=== PATIENT | female | born 2000 | race Caucasian/White ===

== ENCOUNTER 2018-07-03 13:30 | Emergency (ER) | payer OTHER ==
--- OUTSIDE RECORDS SUMMARY | 2018-07-03 13:37 | XMS REPORT | Continuity of Care Document ---
:2000 External Reference #:[id number] Author Name Arlin JIN Ricardo Address [address] [place] [address] Care Team Providers Name Role Phone Pino Nicholas M.D. Care Team Information Access Analyst Unavailable Pino Nicholas M.D. Primary Care Physician Unavailable Payers Date Identification Numbers Payment Provider Subscriber Effective: 2017 Policy Number: [id number] Medicaid-Adult Renetta Gale PayID: [id number] [address] [place] [address] Effective: 2016 [facility] [id number] Expires: 2017 Group Name: [facility] Income [id number] FPL [address] PayID: [id number] [place] [address] Advance Directives Description No Information Available Problems Date Description Provider Status Onset: 06/24/2017 Allergic rhinitis due to animals Malka Baldwin M.D. Active Onset: 09/11/2016 Peanut-induced anaphylaxis Antonio Saha M.D. Active Onset: 09/11/2016 Uncomplicated moderate persistent Antonio Saah M.D. Active asthma Onset: 09/11/2016 Body mass index 20-24 - normal Antonio Saha M.D. Active Onset: 04/15/2016 Ingestion dermatitis due to food Olivia Rich M.D. Active Onset: 04/15/2016 Uncomplicated moderate persistent Olivia Rich M.D. Active asthma Onset: 09/02/2012 Allergic rhinitis Tavo De Jesus M.D. Active Onset: 09/02/2012 Allergic rhinitis due to pollen Tavo De Jesus M.D. Active Onset: 09/02/2012 Extrinsic asthma without status Tavo De Jesus M.D. Active asthmaticus Family History Date Family Member(s) Observation Comments General Asthma General Food Allergy General Headache, Chronic General Migraine General Skin Disease/ rash General sinus disorders Mother Asthma Mother Food Allergy Shell fish, iodine Mother Headache, Chronic Mother Migraine Mother Skin Disease/ Rash Excema First Brother Asthma First Brother sinus disorders First Brother Skin Disease/ Rash Excema Second Brother Food Allergy dairy, shell fish Social History Type Date Description Comments Sex Unknown Marital Status N/A Lives With Mother And Father Lives With Brothers Home Environment 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 Home Environment Does not have an air conditioner Home Environment Stairs are present Home Environment Unfinished Basement Home Environment The basement is dry Home Environment Cotton Comforter Home Environment Mattress is 10 years old Home Environment Mattress is encased in an allergy proof case Home Environment Regular Mattress Home Environment Pillows are encased in an allergy proof case Home Environment Pillows are polyester Home Environment Uses a dehumidifier Home Environment There are draperies in the home Home Environment The home is tripp Home Environment The floors are wood Home Environment Anson Heat Home Environment [place] Home Environment Water Source: Well Smoke-Free Home is smoke-free Pets 1 dog Pets 1 cat Pets Negative For Animals sleep in bedroom Occupation Student ETOH Use Denies alcohol use Tobacco Use Start: Unknown Patient has never smoked Recreational Drug Use Denies Drug Use Allergies, Adverse Reactions, Alerts Date Description Reaction Status Severity Comments 04/27/2017 Eggs Anaphylaxis Active 04/27/2017 Influenza Vaccines Anaphylaxis Active Medications Medication Date Status Form Strength Qnty SIG Indications Ordering Provider Airduo 06/28/ Active Aerosol 232-14mcg/ 1unit use 1 puff J45.40 Arlin Respiclick 2019 Act s twice a day Uldrich, 232/14 PATIENT SUPPORT SPECIALIST-C Ventolin HFA 04/15/ Active Aerosol 108(90Base 8gm 2 puffs J30.1 Arlin 2015 ) mcg/Act inhalation Uldrich, every 4 PATIENT SUPPORT SPECIALIST-C hours Mometasone 04/15/ Active Suspension 50mcg/Act 17gm 2 sprays in J30.1 Olivia Rocío Furoate 2016 each bre Rich M.D. daily Montelukast 04/15/ Active Tablets 10mg 30tab take one J30.1 Arlin Sodium 2016 s tablet by Haleigh, mouth every PATIENT SUPPORT SPECIALIST-C evening at bedtime Advair Diskus 04/15/ Active Aerosol 250-50mcg/ 3unit inhale one J30.1 2015 Dose s puff by McNairn, mouth twice M.D. a day Epipen 2-Rich 04/15/ Active Solution 0.3mg/0.3M 2unit Use as J30.1 Arlin 2015 Auto-Inject L s Directed BLANCA RicardoP-Tammy Medications Administered in Office Medication Date Status Form Strength Qnty SIG Indications Ordering Provider Injection Administered Injection Allergy 018 Injection Injection Administered Injection Allergy 018 Injection Injection Administered Injection Allergy 018 Injection Injection Administered Injection Allergy 018 Injection Injection Administered Injection Allergy 018 Injection Injection Administered Injection Allergy 018 Injection Injection Administered Injection Allergy 018 Injection Injection Administered Injection Daniel Cohn M.D. Injection Administered Injection Allergy 018 Injection Injection Administered Injection Allergy 017 Injection Injection Administered Injection Allergy 017 Injection Injection Administered Injection Allergy 017 Injection Injection Administered Injection Allergy 016 Injection Injection Administered Injection Allergy 016 Injection Injection Administered Injection Allergy 016 Injection Injection Administered Injection Allergy 016 Injection Injection Administered Injection Allergy 016 Injection Injection Administered Injection Allergy 016 Injection Injection Administered Injection Allergy 016 Injection Injection Administered Injection Allergy 016 Injection Injection Administered Injection Allergy 016 Injection Injection Administered Injection Allergy 016 Injection Injection Administered Injection Allergy 016 Injection Injection Administered Injection Allergy 016 Injection Injection Administered Injection Allergy 016 Injection Injection Administered Injection Allergy 016 Injection Injection Administered Injection Allergy 016 Injection Injection Administered Injection Allergy 016 Injection Injection Administered Injection Allergy 016 Injection Injection Administered Injection Allergy 016 Injection Injection Administered Injection Allergy 016 Injection Injection Administered Injection Allergy 015 Injection Injection Administered Injection Allergy 015 Injection Injection Administered Injection Allergy 015 Injection Injection Administered Injection Allergy 015 Injection Injection Administered Injection Allergy 015 Injection Injection Administered Injection Allergy 015 Injection Injection Administered Injection Allergy 015 Injection Injection Administered Injection Allergy 015 Injection Injection Administered Injection Allergy 015 Injection Injection Administered Injection Allergy 015 Injection Injection Administered Injection Allergy 015 Injection Injection Administered Injection Allergy 015 Injection Injection Administered Injection Allergy 014 Injection Injection Administered Injection Allergy 014 Injection Injection Administered Injection Tavo 014 Neal M.D. Injection Administered Injection Allergy 014 Injection Injection Administered Injection Tavo 014 Neal M.D. Injection Administered Injection Allergy 014 Injection Injection Administered Injection Tavo 014 Neal M.D. Injection Administered Injection Allergy 014 Injection Injection Administered Injection Tavo 014 Neal M.D. Injection Administered Injection Allergy 014 Injection Injection Administered Injection Allergy 014 Injection Injection Administered Injection Tavo 014 Neal M.D. Injection Administered Injection Allergy 014 Injection Injection Administered Injection Tavo 014 Neal M.D. Injection Administered Injection Allergy 014 Injection Injection Administered Injection Tavo 014 Neal M.D. Injection Administered Injection Allergy 014 Injection Injection Administered Injection Allergy 014 Injection Injection Administered Injection Tavo 014 Neal M.D. Injection Administered Injection Allergy 014 Injection Injection Administered Injection Tavo 014 Neal M.D. Injection Administered Injection Allergy 014 Injection Injection Administered Injection Tavo 014 Rocío De Jesus.D. Injection Administered Injection Allergy 014 Injection Injection Administered Injection Tavo 014 Neal M.D. Injection Administered Injection Allergy 014 Injection Injection Administered Injection Allergy 014 Injection Injection Administered Injection Allergy 014 Injection Injection Administered Injection Tavo 014 Cirilo De JesusD. Injection Administered Injection Allergy 014 Injection Injection Administered Injection Tavo 013 Rocío De Jesus.D. Injection Administered Injection Allergy 013 Injection Injection Administered Injection Tavo 013 Cirilo De JesusD. Injection Administered Injection Allergy 013 Injection Injection Administered Injection Tavo 013 Rocío De Jesus.D. Injection Administered Injection Allergy 013 Injection Injection Administered Injection Tavo Shona De Jesus M.D. Injection Administered Injection Allergy 013 Injection Injection Administered Injection Tavo Rocío Estrella.D. Injection Administered Injection Allergy 013 Injection Injection Administered Injection Tavo 013 Bianka De Jesus Injection Administered Injection Allergy 013 Injection Injection Administered Injection Allergy 013 Injection Injection Administered Injection Tavo 013 Cirilo De JesusDKristi Injection Administered Injection Allergy 013 Injection Injection Administered Injection Tavo Rocío Estrella.D. Injection Administered Injection Allergy 013 Injection Injection Administered Injection Tavo 013 Cirilo De JesusDKristi Injection Administered Injection Allergy 013 Injection Injection Administered Injection Tavo 013 Rocío De Jesus.D. Injection Administered Injection Allergy 013 Injection Injection Administered Injection Allergy 013 Injection Injection Administered Injection Tavo 013 Rocío De Jesus.D. Injection Administered Injection Allergy 013 Injection Injection Administered Injection Allergy 013 Injection Injection Administered Injection Tavo 013 Rocío De Jesus.D. Injection Administered Injection Allergy 013 Injection Injection Administered Injection Tavo 013 Neal, M.D. Injection Administered Injection Allergy 013 Injection Injection Administered Injection Tavo 013 Neal, M.D. Injection Administered Injection Unknown 013 Injection Administered Injection Tavo 013 Neal, M.D. Injection Administered Injection Tavo 013 Neal, M.D. Injection Administered Injection Tavo 013 Neal, M.D. Injection Administered Injection Tavo 012 Neal, M.D. Injection Administered Injection Tavo 012 Neal, M.D. Injection Administered Injection Tavo 012 Neal, M.D. Injection Administered Injection Tavo 012 Neal, M.D. Injection Administered Injection Tavo 012 Neal, M.D. Injection Administered Injection Tavo 012 Neal, M.D. Injection Administered Injection Tavo 012 Neal, M.D. Injection Administered Injection Tavo 012 Neal, M.D. Injection Administered Injection Tavo 012 Neal, M.D. Injection Administered Injection Tavo 012 Neal, M.D. Injection Administered Injection Tavo 012 Neal, M.D. Injection Administered Injection Tavo 012 Neal, M.D. Injection Administered Injection Tavo 012 Neal, M.D. Injection Administered Injection Tavo 012 Neal, M.D. Injection Administered Injection Tavo 012 Neal, M.D. Injection Administered Injection Tavo 012 Neal, M.D. Injection Administered Injection Tavo 012 Neal, M.D. Injection Administered Injection Tavo 012 Neal, M.D. Injection Administered Injection Tavo 012 Neal, M.D. Injection Administered Injection Tavo 012 Neal, M.D. Injection Administered Injection Tavo 012 Neal, M.D. Injection Administered Injection Tavo 012 Neal, M.D. Injection Administered Injection Tavo 012 Neal, M.D. Injection Administered Injection Tavo 012 Neal, M.D. Injection Administered Injection Tavo 012 Neal, M.D. Injection Administered Injection Tavo 012 Neal, M.D. Injection Administered Injection Tavo 011 Neal, M.D. Injection Administered Injection Tavo 011 Neal, M.D. Injection Administered Injection Tavo 011 Neal, M.D. Injection Administered Injection Tavo 011 Neal, M.D. Injection Administered Injection Tavo 011 Neal, M.D. Injection Administered Injection Tavo 011 Neal, M.D. Injection Administered Injection Tavo 011 Neal, M.D. Injection Administered Injection Tavo 011 Neal, M.D. Injection Administered Injection Tavo 011 Neal, M.D. Injection Administered Injection Tavo 011 Neal, M.D. Injection Administered Injection Tavo 011 Neal, M.D. Injection Administered Injection Tavo 011 Neal, M.D. Injection Administered Injection Tavo 011 Neal, M.D. Injection Administered Injection Tavo 011 Neal, M.D. Injection Administered Injection Tavo 011 Neal, M.D. Injection Administered Injection Tavo 011 Neal, M.D. Injection Administered Injection Tavo 011 Neal, M.D. Injection Administered Injection Tavo 011 Neal, M.D. Injection Administered Injection Tavo 011 Neal, M.D. Injection Administered Injection Tavo 010 Neal, M.D. Injection Administered Injection Tavo 010 Neal, M.D. Injection Administered Injection Tavo 010 Neal, M.D. Injection Administered Injection Tavo 010 Neal, M.D. Injection Administered Injection Olivia M 010 Hilario, M.D. Injection Administered Injection Tavo 010 Neal, M.D. Injection Administered Injection Tavo 010 Neal, M.D. Injection Administered Injection Olivia M 010 Hilario, M.D. Injection Administered Injection Tavo 010 Neal, M.D. Injection Administered Injection Tavo 010 Neal, M.D. Injection Administered Injection Tavo 010 Neal, M.D. Injection Administered Injection Tavo 010 Neal, M.D. Injection Administered Injection Tavo 010 Neal, M.D. Injection Administered Injection Tavo 010 Neal, M.D. Injection Administered Injection Tavo 010 Neal, M.D. Injection Administered Injection Tavo 010 Neal, M.D. Injection Administered Injection Tavo 010 Neal, M.D. Injection Administered Injection Tavo 010 Neal, M.D. Injection Administered Injection Tavo 010 Neal, M.D. Injection Administered Injection Tavo 010 Neal, M.D. Injection Administered Injection Loivia M 010 Hilario, M.D. Injection Administered Injection Olivia M 010 Hilario, M.D. Injection Administered Injection Tavo 009 Neal, M.D. Injection Administered Injection Tavo 009 Neal, M.D. Injection Administered Injection Tavo 009 Neal, M.D. Injection Administered Injection Tavo 009 Neal, M.D. Injection Administered Injection Tavo 009 Neal, M.D. Injection Administered Injection Tavo 009 Neal, M.D. Injection Administered Injection Tavo 009 Neal, M.D. Injection Administered Injection Tavo 009 Neal, M.D. Injection Administered Injection Tavo 009 Neal, M.D. Injection Administered Injection Tavo 009 Neal, M.D. Injection Administered Injection Tavo 009 Neal, M.D. Injection Administered Injection Hudson 009 Leonardostowski, M.D. Injection Administered Injection Tavo 009 Neal, M.D. Injection Administered Injection Tavo 009 Neal, M.D. Injection Administered Injection Tavo 009 Neal, M.D. Injection Administered Injection Tavo 009 Neal, M.D. Injection Administered Injection Tavo 009 Neal, M.D. Injection Administered Injection Tavo 009 Neal, M.D. Injection Administered Injection Tavo 009 Neal, M.D. Injection Administered Injection Tavo 009 Neal, M.D. Injection Administered Injection Tavo 009 Neal, M.D. Injection Administered Injection Tavo 009 Neal, M.D. Injection Administered Injection Atvo 009 Neal, M.D. Injection Administered Injection Tavo 009 Neal, M.D. Injection Administered Injection Tavo 009 Neal, M.D. Injection Administered Injection Tavo 009 Neal, M.D. Injection Administered Injection Tavo 009 Neal, M.D. Injection Administered Injection Tavo 009 Neal, M.D. Injection Administered Injection Tavo 009 Neal, M.D. Injection Administered Injection Tavo 009 Neal, M.D. Injection Administered Injection Tavo 009 Neal, M.D. Injection Administered Injection Tavo 009 Neal, M.D. Injection Administered Injection Tavo 009 Neal, M.D. Injection Administered Injection Tavo 009 Neal, M.D. Injection Administered Injection Tavo 009 Neal, M.D. Injection Administered Injection Hudson 009 Cristi, M.D. Injection Administered Injection Tavo 009 Neal, M.D. Injection Administered Injection Tavo 009 Neal, M.D. Injection Administered Injection Tavo 009 Neal, M.D. Injection Administered Injection Tavo 008 Neal, M.D. Injection Administered Injection Tavo 008 Neal, M.D. Injection Administered Injection Tavo 008 Neal, M.D. Injection Administered Injection Tavo 008 Neal, M.D. Injection Administered Injection Tavo 008 Neal, M.D. Injection Administered Injection Tavo 008 Neal, M.D. Injection Administered Injection Tavo 008 Neal, M.D. Injection Administered Injection Tavo 008 Neal, M.D. Injection Administered Injection Hudson 008 Leonardostowski, M.D. Injection Administered Injection Tavo 008 Neal, M.D. Injection Administered Injection Tavo 008 Neal, M.D. Injection Administered Injection Tavo 008 Neal, M.D. Injection Administered Injection Tavo 008 Neal, M.D. Injection Administered Injection Tavo 008 Enal, M.D. Injection Administered Injection Tavo 008 Neal, M.D. Injection Administered Injection Tavo 008 Neal, M.D. Injection Administered Injection Tavo 008 Neal, M.D. Injection Administered Injection Tavo 008 Neal, M.D. Injection Administered Injection Tavo 008 Neal, M.D. Injection Administered Injection Tavo De Jesus M.D. Injection Administered Injection Gerardo Nayak M.D. Injection Administered Injection Gerardo Nayak M.D. Injection Administered Injection Gerardo Nayak M.D. Immunizations Description No Information Available Vital Signs Date Vital Result Comment 06/28/2018 9:35am Height 64 inches 5'4" Weight 146.00 lb Weight 66.226 kg Respiratory Rate 18 /min Heart Rate 70 /min O2 % BldC Oximetry 98 % BP Systolic 98 mmHg BP Diastolic 58 mmHg Asthma Control Test 24 BMI (Body Mass Index) 25.1 kg/m2 Body Mass Index Percentile 79 % Height Percentile 45 % Weight Percentile 77th 06/24/2017 8:40am Height 64 inches 5'4" Weight 134.00 lb Weight 60.782 kg Respiratory Rate 20 /min Heart Rate 63 /min O2 % BldC Oximetry 100 % BP Systolic 111 mmHg BP Diastolic 56 mmHg Asthma Control Test 22 BMI (Body Mass Index) 23.0 kg/m2 Body Mass Index Percentile 67 % Height Percentile 46 % Weight Percentile 65th 04/27/2017 3:06pm Height 64 inches 5'4" Weight 128.00 lb Weight 58.061 kg Respiratory Rate 18 /min Heart Rate 72 /min O2 % BldC Oximetry 99 % BP Systolic 107 mmHg BP Diastolic 72 mmHg Asthma Control Test 21 BMI (Body Mass Index) 22.0 kg/m2 Body Mass Index Percentile 57 % Height Percentile 46 % Weight Percentile 56th 09/11/2016 10:58am Height 64 inches 5'4" Weight 126.00 lb Weight 57.154 kg Respiratory Rate 16 /min Heart Rate 67 /min O2 % BldC Oximetry 97 % BP Systolic 109 mmHg BP Diastolic 67 mmHg Asthma Control Test 25 BMI (Body Mass Index) 21.6 kg/m2 Body Mass Index Percentile 55 % Height Percentile 47 % Weight Percentile 55th 04/15/2016 4:53pm Height 64 inches 5'4" Weight 133.00 lb Weight 60.329 kg Respiratory Rate 20 /min Heart Rate 72 /min O2 % BldC Oximetry 99 % BP Systolic 109 mmHg BP Diastolic 59 mmHg Asthma Control Test 24 BMI (Body Mass Index) 22.8 kg/m2 Body Mass Index Percentile 69 % Height Percentile 47 % Weight Percentile 68th 09/02/2012 2:04pm Height 62.75 inches 5'2.75" Weight 111.50 lb Weight 50.576 kg Heart Rate 68 /min O2 % BldC Oximetry 97 % BP Systolic 104 mmHg BP Diastolic 66 mmHg BMI (Body Mass Index) 19.9 kg/m2 Body Mass Index Percentile 59 % Height Percentile 47 % Weight Percentile 57th Results Test Date Facility Test Result H/L Range Note Laboratory test 04/18/2016 [facility] Rast Peanut 12.3 kU/L N [address] [address] [phone] Rast Almonds 0.97 kU/L N 2 Rast [place] Nuts 0.92 kU/L N 3 Rast Cashews 2.71 kU/L N 4 Rast Hazelnut 1.12 kU/L N 5 Rast Pecan Nut Ige 1.92 kU/L N 6 Rast Pistachio Ige 3.60 kU/L N 7 Rast Macadamia 04/18/2016 [facility] Macadamia Nut 0.47 kU/L Abnormal <0.35 Nut RF345 [address] [place] [address] [phone] Macadamia Nut IgE Flag Class 1 N 8 Laboratory test finding 04/18/2016 [facility] Rast Walnuts 6.59 kU/L N 9 [address] [place] [address] [phone] Rast Egg White 2.33 kU/L N 10 Peanut Component 04/18/2016 [facility] Peanut Component 8.56 kU/ L N 11 Panel [address] Caitlin h 1 [place] [address] [phone] Peanut Component Caitlin h 2 4.01 kU/L N 12 Peanut Component Caitlin h 3 0.61 kU/L N 13 Peanut Component Caitlin h 8 <0.10 kU/L N 14 Peanut Component Caitlin h 9 <0.10 kU/L N 15 Peanut Component Interp See Comment N 16 Laboratory test 04/18/2016 [facility] Reference Lab See Comment N 17 finding [address] [place] [address] [phone] 1 Class 3 (Positive 3.50-17.4) Test Performed by: [address] [place] [address] [employer]: Morteza Guevara II, M.D., Ph.D. 2 Class 2 (Positive 0.70-3.49) Test Performed by: [place] [address] [employer]: Morteza Guevara II, M.D., Ph.D. 3 Class 2 (Positive 0.70-3.49) Test Performed by: [place] [address] [employer] S[employer]: Morteza Guevara II, M.D., Ph.D. 4 Class 2 (Positive 0.70-3.49) Test Performed by: [place] [address] [employer]: Morteza Guevara II, M.D., Ph.D. 5 Class 2 (Positive 0.70-3.49) Test Performed by: [place] [address] [employer]: Morteza Guevara II, M.D., Ph.D. 6 Class 2 (Positive 0.70-3.49) Test Performed by: [place] [address] [employer]: Morteza Guevara II, M.D., Ph.D. 7 Class 3 (Positive 3.50-17.4) Test Performed by: [place] [address] [employer]: Morteza Guevara II, M.D., Ph.D. 8 The test method is the ProxToMe ImmunoCAP allergen-specific IgE system. CLASS INTERPRETATION <0.10 kU/L=0, Negative; 0.10 - 0.34 kU/L=0/1, Equivocal/Borderline; 0.35 - 0.69 kU/L=1, Low Positive; 0.70 - 3.49 kU/L=2, Moderate Positive; 3.50 - 17.49 kU/L=3, High Positive; 17.50 - 49.99 kU/L=4, Very High Positive; 50.00 - 99.99 kU/L=5, Very High Positive; >99.99 kU/L=6, Very High Positive *This test was developed and its performance characteristics determined by [facility]. It has not been cleared or approved by the U.S. Food and Drug Administration. Test Performed by: [facility], Interface [address] [place] [address] 9 Class 3 (Positive 3.50-17.4) Test Performed by: [place] [address] [employer]: Morteza Guevara II, M.D., Ph.D. 10 Class 2 (Positive 0.70-3.49) Test Performed by: [place] [address] [employer]: Morteza Guevara II, M.D., Ph.D. 11 Class 3 (Positive 3.50-17.4) 12 Class 3 (Positive 3.50-17.4) 13 Class 1 (Equivocal 0.35-0.69) 14 Class 0 (Negative <0.10) 15 Class 0 (Negative <0.10) 16 Positive for Caitlin h 1, Caitlin h 2 and Caitlin h 3 IgE antibodies in context of positive total peanut IgE. Sensitization to Caitlin h 1, Caitlin h 2 and Caitlin h 3 may indicate an increased risk of systemic allergic response upon exposure to peanut. Results from peanut-specific IgE testing must be interpreted in the context of patient's clinical evaluation and history of allergen reactivity. Test Performed by: [address] [address] [employer]: Morteza Guevara II, M.D., Ph.D. 17 Test Result Flag Unit RefValue Ovomucoid, IgE 2.51 kU/L Class 2 (Positive 0.70-3.49) Test Performed by: [address] [address] [employer]: Morteza Guevara II, M.D., Ph.D. Procedures Date Code Description Status 12/11/2017 71576 Injection Completed 11/20/2017 01479 Injection Completed 2017 94293 Injection Completed 10/29/2017 27753 Injection Completed 10/08/2017 68652 Injection Completed 09/30/2017 34122 Injection Completed 06/24/2017 07247 Pre PFT Completed 05/01/2017 37498 Injection Completed 04/29/2017 18774 Injection Completed 04/29/2017 96760 Injection Completed 04/28/2017 34283 Extract 1-10 Completed 04/27/2017 15338 Pre PFT Completed 09/11/2016 70096 Pre PFT Completed 07/08/2016 94674 Injection Completed 06/10/2016 85508 Injection Completed 05/13/2016 08242 Injection Completed 04/15/2016 12893 Pre PFT Completed 04/15/2016 45955 Injection Completed 03/25/2016 05855 Injection Completed 02/26/2016 21689 Injection Completed 01/29/2016 21370 Injection Completed 01/08/2016 34060 Injection Completed 12/25/2015 83472 Injection Completed 12/11/2015 92075 Extract 1-10 Completed 12/11/2015 57584 Injection Completed 11/27/2015 46796 Injection Completed 11/13/2015 73114 Injection Completed 10/30/2015 45597 Injection Completed 10/16/2015 99546 Injection Completed 10/02/2015 62068 Injection Completed 09/11/2015 43629 Injection Completed 08/28/2015 18798 Injection Completed 08/21/2015 44914 Injection Completed 07/31/2015 11764 Injection Completed 06/26/2015 76091 Extract 1-10 Completed 06/26/2015 73851 Injection Completed 05/22/2015 74402 Injection Completed 04/24/2015 03989 Injection Completed 03/27/2015 09539 Injection Completed 03/06/2015 49842 Injection Completed 02/20/2015 19844 Injection Completed 12/26/2014 95490 Injection Completed 11/21/2014 37283 Injection Completed 10/24/2014 44470 Injection Completed 09/19/2014 17198 Injection Completed 08/29/2014 91710 Extract 1-10 Completed 08/29/2014 65553 Injection Completed 07/25/2014 75043 Injection Completed 06/27/2014 83132 Injection Completed 05/30/2014 79857 Injection Completed 04/25/2014 03141 Injection Completed 03/21/2014 39984 Injection Completed 02/21/2014 58385 Injection Completed 02/07/2014 31095 Injection Completed 02/07/2014 30920 Injection Completed 01/24/2014 33486 Injection Completed 01/24/2014 25948 Injection Completed 01/10/2014 36864 Injection Completed 01/10/2014 42057 Injection Completed 12/27/2013 70180 Injection Completed 12/27/2013 66841 Injection Completed 12/06/2013 73742 Injection Completed 11/22/2013 87634 Injection Completed 11/22/2013 34995 Injection Completed 11/08/2013 53352 Injection Completed 11/08/2013 71398 Injection Completed 10/25/2013 16781 Injection Completed 10/25/2013 60097 Injection Completed 10/04/2013 24874 Injection Completed 09/13/2013 86542 Injection Completed 09/13/2013 92080 Injection Completed 08/16/2013 33582 Injection Completed 08/16/2013 08172 Injection Completed 08/02/2013 80840 Injection Completed 08/02/2013 25652 Injection Completed 07/19/2013 64220 Injection Completed 07/19/2013 24388 Injection Completed 06/21/2013 32817 Extract 1-10 Completed 06/21/2013 37347 Injection Completed 05/24/2013 90106 Injection Completed 04/26/2013 13629 Injection Completed 04/26/2013 43649 Injection Completed 04/12/2013 43620 Injection Completed 04/12/2013 35907 Injection Completed 03/22/2013 37094 Injection Completed 03/22/2013 15851 Injection Completed 03/08/2013 91825 Injection Completed 03/08/2013 91095 Injection Completed 02/22/2013 52677 Injection Completed 02/22/2013 76960 Injection Completed 02/01/2013 49732 Injection Completed 02/01/2013 92633 Injection Completed 01/18/2013 07110 Injection Completed 01/18/2013 22996 Injection Completed 12/28/2012 71815 Injection Completed 12/07/2012 29323 Injection Completed 12/07/2012 54419 Injection Completed 12/07/2012 02403 Extract 1-10 Completed 11/23/2012 33450 Injection Completed 11/23/2012 42941 Injection Completed 2012 09018 Injection Completed 2012 66468 Injection Completed 10/26/2012 18102 Injection Completed 10/26/2012 33978 Injection Completed 10/05/2012 43613 Injection Completed 09/21/2012 56934 Injection Completed 09/21/2012 91924 Injection Completed 08/24/2012 13544 Injection Completed 08/03/2012 71723 Injection Completed 08/03/2012 44180 Injection Completed 07/20/2012 54353 Injection Completed 07/20/2012 67546 Injection Completed 07/06/2012 87610 Injection Completed 07/06/2012 10282 Injection Completed 06/22/2012 16385 Extract 1-10 Completed 06/22/2012 39850 Injection Completed 05/25/2012 75719 Injection Completed 04/27/2012 46631 Injection Completed 04/06/2012 33604 Injection Completed 03/23/2012 07010 Injection Completed 03/09/2012 43158 Injection Completed 02/24/2012 65395 Injection Completed 02/17/2012 36317 Injection Completed 02/03/2012 43632 Injection Completed 01/20/2012 82577 Injection Completed 01/06/2012 48145 Extract 1-10 Completed 01/06/2012 83493 Injection Completed 12/23/2011 47816 Injection Completed 12/09/2011 74963 Injection Completed 11/25/2011 58654 Injection Completed 11/11/2011 82947 Injection Completed 10/30/2011 85705 Injection Completed 10/14/2011 11177 Injection Completed 10/02/2011 64779 Injection Completed 09/16/2011 98837 Injection Completed 09/02/2011 39292 Injection Completed 08/28/2011 32787 Extract 1-10 Completed 08/19/2011 66039 Injection Completed 08/05/2011 22327 Injection Completed 07/22/2011 80321 Injection Completed 07/08/2011 52925 Injection Completed 06/24/2011 04871 Injection Completed 06/10/2011 37109 Injection Completed 05/27/2011 47458 Injection Completed 05/06/2011 92981 Injection Completed 04/22/2011 53989 Injection Completed 03/18/2011 35819 Injection Completed 03/11/2011 64414 Extract 1-10 Completed 02/18/2011 78665 Injection Completed 02/04/2011 79398 Injection Completed 01/14/2011 53371 Injection Completed 01/02/2011 23006 Injection Completed 12/10/2010 75607 Injection Completed 12/10/2010 94448 Pulmonary Function Test Completed 11/26/2010 90040 Injection Completed 11/12/2010 67571 Injection Completed 10/29/2010 18539 Injection Completed 10/15/2010 57967 Injection Completed 10/01/2010 24445 Injection Completed 09/26/2010 59297 Extract 1-10 Completed 09/17/2010 71915 Injection Completed 09/03/2010 67855 Injection Completed 08/20/2010 80561 Injection Completed 08/06/2010 66983 Injection Completed 07/23/2010 20749 Injection Completed 07/09/2010 93671 Injection Completed 06/11/2010 72495 Injection Completed 05/14/2010 85349 Injection Completed 04/02/2010 78190 Injection Completed 03/05/2010 77083 Injection Completed 02/28/2010 18740 Extract 1-10 Completed 02/05/2010 17677 Injection Completed 01/22/2010 57446 Injection Completed 01/08/2010 22809 Injection Completed 12/25/2009 03083 Injection Completed 12/11/2009 49897 Injection Completed 11/27/2009 25168 Injection Completed 11/13/2009 68758 Injection Completed 10/23/2009 53059 Injection Completed 10/09/2009 57678 Injection Completed 09/18/2009 72160 Injection Completed 09/13/2009 78372 Extract 1-10 Completed 09/04/2009 46129 Injection Completed 08/21/2009 47082 Injection Completed 08/07/2009 68880 Injection Completed 07/24/2009 16255 Injection Completed 07/10/2009 06771 Injection Completed 06/26/2009 49137 Injection Completed 06/12/2009 22335 Injection Completed 05/29/2009 97399 Injection Completed 05/15/2009 17223 Injection Completed 05/01/2009 68852 Injection Completed 04/19/2009 29940 Extract 1-10 Completed 04/17/2009 54858 Injection Completed 04/03/2009 95735 Injection Completed 03/22/2009 85725 Injection Completed 03/06/2009 93663 Injection Completed 02/20/2009 00743 Injection Completed 02/06/2009 40667 Injection Completed 01/23/2009 48054 Injection Completed 01/09/2009 15316 Injection Completed 12/26/2008 20344 Injection Completed 12/12/2008 33276 Injection Completed 12/07/2008 73033 Extract 1-10 Completed 11/28/2008 77450 Injection Completed 11/14/2008 28253 Injection Completed 11/07/2008 28966 Injection Completed 10/31/2008 89471 Injection Completed 10/26/2008 49896 Injection Completed 10/17/2008 40116 Injection Completed 10/10/2008 74054 Injection Completed 10/03/2008 24768 Injection Completed 09/26/2008 29679 Injection Completed 09/19/2008 70941 Injection Completed 09/14/2008 04443 Extract 1-10 Completed 09/12/2008 48005 Injection Completed 09/05/2008 01486 Injection Completed 08/29/2008 62552 Injection Completed 08/22/2008 12151 Injection Completed 08/15/2008 95864 Injection Completed 08/08/2008 35661 Injection Completed 08/01/2008 20280 Injection Completed 07/25/2008 13689 Injection Completed 07/18/2008 68739 Injection Completed 07/11/2008 71517 Injection Completed 06/29/2008 37097 Extract 1-10 Completed 06/27/2008 44102 Injection Completed 06/20/2008 98535 Injection Completed 06/13/2008 71849 Injection Completed 06/06/2008 99055 Injection Completed 05/30/2008 84952 Injection Completed 05/23/2008 60855 Injection Completed 05/16/2008 77686 Injection Completed 05/02/2008 01763 Injection Completed 04/25/2008 20022 Injection Completed 04/12/2008 81634 Extract 1-10 Completed 04/11/2008 58273 Injection Completed 04/04/2008 75593 Injection Completed 03/28/2008 91342 Injection Completed 03/21/2008 87409 Injection Completed 03/14/2008 63946 Injection Completed 03/07/2008 79242 Injection Completed 02/29/2008 26644 Injection Completed 02/22/2008 71188 Injection Completed 02/15/2008 61762 Injection Completed 02/08/2008 76804 Injection Completed 02/01/2008 68760 Injection Completed 01/25/2008 37663 Injection Completed 01/18/2008 84366 Injection Completed 01/11/2008 75189 Injection Completed 01/04/2008 69536 Injection Completed 12/28/2007 27500 Injection Completed 12/21/2007 10827 Injection Completed 12/14/2007 32014 Injection Completed 12/07/2007 58359 Injection Completed 11/30/2007 45830 Injection Completed 11/24/2007 00635 Extract 1-10 Completed 02/26/2004 60064 Injection Completed 02/12/2004 46180 Injection Completed 02/05/2004 87587 Injection Completed 01/26/2004 56557 Extract 1-10 Completed Encounters Type Date Location Provider Dx Diagnosis Office Visit 06/28/2018 Yazmin Ricardo, J45.40 Moderate persistent 9:20a PATIENT SUPPORT SPECIALIST-C asthma, uncomplicated J30.89 Other allergic rhinitis J30.81 Allergic rhinitis due to animal (cat) (dog) hair and dander J30.2 Other seasonal allergic rhinitis J30.1 Allergic rhinitis due to pollen Office Visit 06/24/2017 8:40a [place] Malka Baldwin, J45.40 Moderate persistent M.D. asthma, uncomplicated J30.89 Other allergic rhinitis J30.81 Allergic rhinitis due to animal (cat) (dog) hair and dander J30.2 Other seasonal allergic rhinitis Office Visit 04/27/2017 3:00p [place] Arlin Ulsheron, J45.40 Moderate persistent PATIENT SUPPORT SPECIALIST-C asthma, uncomplicated T78.01xA Anaphylactic reaction due to peanuts, initial encounter J30.1 Allergic rhinitis due to pollen J30.89 Other allergic rhinitis J30.2 Other seasonal allergic rhinitis Office Visit 09/11/2016 11:00a [place] [facility] Antonio Saha J30.1 Allergic rhinitis M.D. due to pollen J45.40 Moderate persistent asthma, uncomplicated T78.01xA Anaphylactic reaction due to peanuts, initial encounter Z68.21 Body mass index (BMI) 21.0-21.9, adult Office Visit 04/15/2016 5:00p [place] [facility] Olivia Alford J30.89 Other allergic Bianka Rich rhinitis J30.1 Allergic rhinitis due to pollen J45.40 Moderate persistent asthma, uncomplicated L27.2 Dermatitis due to ingested food Office Visit 09/02/2012 2:00p [place] Tavo 493.00 Asthma Extrinsic Office Bianka De Jesus Unspecified 477.0 Rhinitis Allergic Due To Pollen 477.8 Rhinitis Allergic Due To Other Allergen Office Visit 01/08/2010 4:40p [place] [facility] Olivia Alford 693.1 Dermatitis Due To Bianka Rich Food 477.0 Rhinitis Allergic Due To Pollen 493.90 Asthma Unspec W/O Status Asthmaticus 692.9 Dermatitis Unspec Cause Due To Spec Agents Other 477.8 Rhinitis Allergic Due To Other Allergen Office Visit 11/27/2009 11:40a [place] [facility] Olivia Alford 693.1 Dermatitis Due To Bianka Rich Food 477.0 Rhinitis Allergic Due To Pollen 493.90 Asthma Unspec W/O Status Asthmaticus 692.9 Dermatitis Unspec Cause Due To Spec Agents Other 477.8 Rhinitis Allergic Due To Other Allergen Office Visit 11/14/2008 11:30a [place] [facility] [place] 693.1 Dermatitis Due Bianka Colin To Food 477.0 Rhinitis Allergic Due To Pollen 493.90 Asthma Unspec W/O Status Asthmaticus 692.9 Dermatitis Unspec Cause Due To Spec Agents Other 477.8 Rhinitis Allergic Due To Other Allergen Office Visit 01/22/2004 5:15p [place] Mireya Menjivar 693.1 Dermatitis Due To Food 493.90 Asthma Unspec W/O Status Asthmaticus Office Visit 07/25/2003 4:45p [place] [facility] Gerardo Ellison 693.1 Dermatitis Due Bianka Nayak To Food 493.90 Asthma Unspec W/O Status Asthmaticus Plan of Treatment Future Appointment(s):07/02/2018 1:30 pm - Allergy Testing at [id number]/02/2018 9:20 am - [id number]/28/2018 - DILSHAD Braxton- CJ45.40 Moderate persistent asthma, fjjmsrcarxysjV69.89 Other allergic wdyqqzhqE91.81 Allergic rhinitis due to animal (cat) (dog) hair and tszgruN85.2 Other seasonal allergic fvwrkiwkL85.1 Allergic rhinitis due to pollenNew Medication:Airduo Respiclick 232/14 232-14 mcg/ActFollow up:Thursday for pre PFT and ENORecommendations:Continue all medications as prescribed.Refrain from wearing perfumes/scented colognes while visitingour office. Your PFT shows moderate obstruction so Start the Airduo 1 puff twice a day Stop the Breo Continue the Ventolin 2 puffs every 4 hours as needed for cough, shortness of breath, chest tightness or wheezing. Continue the montelukast 1 daily Monitor Albuterol use. If using more than 2x/week,please call the office as your asthma medications may need to be adjusted. Followup on Thursday before going back to [facility]
[2018-07-03 13:53] VITALS: BP 120/79
--- NOTE | 2018-07-03 14:47 | UC ---
Respiratory Complaint HPI - HPI Summary HPI Summary: 17 y/o female presents to the urgent care c/o chest tightness for the past week. Pt has Hx of Asthma. She was seen by her Child Psychologist twice this week for a a pulmonary function test. They also did a chest x-ray which was also negative. Pt reports her asthma is triggered by the cold. She has mild nasal congestion w/ clear nasal discharge. She has been using her inhaler, but symptoms have not improve. She is afraid she is going to get an asthma attack while in School. She called Child Psychologist office this morning, but they are close today. Pt denies fever, SOB, chest pain, abdominal pain, WARREN, N/V/D. - History of Current Complaint Chief Complaint: UCRespiratory Stated Complaint: CHEST CONGESTION Time Seen by Provider: 07/03/18 14:46 Hx Obtained From: Patient Hx Last Menstrual Period: 06/20/18 ?: No Onset/Duration: Gradual Onset, Lasting Weeks - 1 week, Still Present, Worse Since - yesterday Timing: Intermittent Episodes Severity Initially: Mild Severity Currently: Mild Pain Intensity: 0 Pain Scale Used: 0-10 Numeric Character: Cough: Nonproductive - dry Aggravating Factors: Recumbent Position Alleviating Factors: Bronchodilator Associated Signs And Symptoms: Positive: Wheezing - mild, URI, Nasal Congestion - Risk Factors Pulmonary Embolism Risk Factors: Negative Cardiac Risk Factors: Negative Pseudomonas Risk Factors: Negative Tuberculosis Risk Factors: Negative - Allergies/Home Medications Allergies/Adverse Reactions: Allergies Allergy/AdvReac Type Severity Reaction Status Date / Time egg Allergy Anaphylatic Verified 07/03/18 13:54 Shock PEANUTS Allergy Severe Anaphylatic Uncoded 05/16/13 10:03 Shock Home Medications: Home Medications Fluticasone/Salmeterol [Airduo Respiclick 55-14 Mcg] 1 puff INH BID 07/03/18 [ History Confirmed 07/03/18] PMH/Surg Hx/FS Hx/Imm Hx Previously Healthy: Yes Respiratory History: Asthma - Surgical History Surgical History: None - Family History Known Family History: Positive: Cardiac Disease, Hypertension, Respiratory Disease - asthma - Social History Occupation: Student Lives: With Family Alcohol Use: None Substance Use Type: None Smoking Status (MU): Never Smoked Tobacco - Immunization History Vaccination Up to Date: Yes Review of Systems All Other Systems Reviewed And Are Negative: Yes Constitutional: Positive: Negative Skin: Positive: Negative Eyes: Positive: Negative ENT: Positive: Nasal Discharge - mild cleat Respiratory: Positive: Cough - mild dry, Other - wheezing Cardiovascular: Positive: Negative Gastrointestinal: Positive: Negative Genitourinary: Positive: Negative Motor: Positive: Negative Neurovascular: Positive: Negative Musculoskeletal: Positive: Negative Neurological: Positive: Negative Psychological: Positive: Negative Is Patient Immunocompromised?: No Physical Exam - Summary Physical Exam Summary: Vital Signs Reviewed: Yes General: well developed, well nourished female adolescent sitting in the examining table w/o any apparent distress Eyes: Positive: Conjunctiva Clear - PERRLA, EOMI, fundi grossly normal ENT: Positive: Normal ENT inspection, Hearing grossly normal, Pharynx normal, Nasal congestion - edematous and erythematous nasal mucosa, Nasal drainage - yellowish drainage, TMs normal. Negative: Tonsillar swelling, Tonsillar exudate Neck: Positive: Supple, Nontender, No Lymphadenopathy Respiratory: no orthopnea or dyspnea. Able to speak in full sentences, no retractions or accessory muscle use, no tripod position, stridor, or head bobbing. Positive breath sounds bilaterally. B/L posterior lungs w/ mild wheezing, no rhonchi, no crackles or rales. Cardiovascular: Positive: RRR, No Murmur, Pulses Normal, Brisk Capillary Refill Abdomen Description: Positive: Nontender, No Organomegaly, Soft. Negative: CVA Tenderness (R), CVA Tenderness (L) Bowel Sounds: Positive: Present Musculoskeletal Exam: Normal Musculoskeletal: Positive: Strength Intact, ROM Intact, No Edema Neurological Exam: Normal Psychological Exam: Normal Skin Exam: Normal Triage Information Reviewed: Yes Vital Signs: Initial Vital Signs Temp 97.7 F 07/03/18 13:50 Pulse 78 07/03/18 13:50 Resp 12 07/03/18 13:50 BP 120/79 07/03/18 13:50 Pulse Ox 100 07/03/18 13:50 Respiratory Course/Dx - Course Course Of Treatment: 17 y/o female presents to the urgent care c/o chest tightness for the past week. Pt has Hx of Asthma. She was seen by her Child Psychologist twice this week for a a pulmonary function test. They also did a chest x-ray which was also negative. Pt reports her asthma is triggered by the cold. She has mild nasal congestion w/ clear nasal discharge. She has been using her inhaler, but symptoms have not improve. She is afraid she is going to get an asthma attack while in School. She called Child Psychologist office this morning, but they are close today. Pt denies fever, SOB, chest pain, abdominal pain, WARREN, N/V/D. Hx obtained. Pt W/ mild posterior upper lungs w/ mild wheezing. O2Sat:100%. Pt Rx Prednisone PO and Albuterol neb Treatment as directed below. The patient was recommended to increase fluid intake. Take medications as recommended. Pt advised to f/u w/ sr. pricing analyst for further managment on her Asthma. D/C instructions explained. Patient understood and agree w/ plan of care. Pt left clinic hemodynamically stable , A&OX3 - Differential Dx/Diagnosis Differential Diagnosis/HQI/PQRI: Asthma, Bronchitis, Influenza, Laryngitis, Sinusitis Provider Diagnosis: Asthma exacerbation Discharge - Sign-Out/Discharge Documenting (check all that apply): Patient Departure - d/c home All imaging exams completed and their final reports reviewed: No Studies - Discharge Plan Condition: Stable Disposition: HOME Prescriptions: Albuterol 2.5MG/3ML (0.083%)* [Ventolin 2.5 MG/3 ML NEB.STEPAN*] 2.5 mg INH Q6H #1 box predniSONE TAB* [Deltasone 20 MG TAB*] 20 mg PO DAILY #11 tab Patient Education Materials: Asthma (ED) Referrals: Mark Nicholas MD [Primary Care Provider] - 2 Days Additional Instructions: 1- Take Prednisone PO taper dose as directed 2-Use the albuterol neb treatment to alleviate wheezing as directed . Increase fluid intake, rest and eat well. 3- If symptoms do not improve or worsen or your develop SOB with fever and severe wheezing please go immediately to the ER further evaluation and treatment. 4- F/u with your Child Psychologist in 2-3 days for further management on your Asthma if not improvement - Billing Disposition and Condition Condition: STABLE Disposition: Home
== END 2018-07-03 15:38 | disposition home or self-care (01) ==
LOC: UCEAST 13:30
DX: J45.901 Unspecified asthma with (acute) exacerbation (principal); Z79.51 Long term (current) use of inhaled steroids; Z91.010 Allergy to peanuts; Z91.012 Allergy to eggs
CPT/HCPCS: 99212; G0463